=== PATIENT | male | born 1990 | race African-American/Black ===

== ENCOUNTER 2017-03-02 10:53 | Emergency (ER) | payer MEDICAID ==
[~2017-03-02] VITALS: Ht 175.3 cm; Wt 75.0 kg
[2017-03-02 10:59] VITALS: BP 139/78; PULSE 54; RESP 16; TEMP 98.3; O2SAT 100
[2017-03-02] MEDS ORDERED: ZOFR4TAB PO (11:12)
[2017-03-02] MEDS ORDERED: SODIUM CHLOR 0.9% 1000 ML INJ 1,000 ML IV ONE (11:12)
[2017-03-02] MEDS ORDERED: ONDANSETRON HCL 4 MG/2 ML VIAL IVP ONE (11:15)
[2017-03-02] MEDS ORDERED: DICYCLOMINE HCL 20 MG/2 ML VIAL IM ONE (11:15)
[2017-03-02] MEDS ORDERED: SODIUM CHLORIDE 0.9% FLUSH 10 ML FLUSH IVF PRN (11:15)
[2017-03-02] MEDS ORDERED: PANTOPRAZOLE SODIUM 40 MG VIAL IVP ONE (11:15)
[2017-03-02 11:20] VITALS: RESP 18; O2SAT 99
[2017-03-02 11:27] LABS: AUTOMATED NEUTROPHIL # 8.3 TH/MM3 (1.8-7.7); BASOPHIL % 0.4 % (0.0-2.0); EOSINOPHIL # 0.1 TH/MM3 (0-0.4); EOSINOPHIL % 0.5 % (0.0-4.0); HEMATOCRIT 43.1 % (39.0-51.0); LYMPH % 14.2 % (9.0-44.0); LYMPHOCYTE # 1.5 TH/MM3 (1.0-4.8); MEAN CELL VOLUME 87.1 FL (80.0-100.0); MEAN CORPUSCULAR HEMOGLOBIN 28.5 PG (27.0-34.0); MEAN CORPUSCULAR HGB CONC 32.8 % (32.0-36.0); NEUT % 79.9 % (16.0-70.0); PLATELET COUNT 119 TH/MM3 (150-450); RED BLOOD COUNT 4.95 MIL/MM3 (4.50-5.90); RED CELL DISTRIBUTION WIDTH 13.5 % (11.6-17.2); WHITE BLOOD COUNT 10.4 TH/MM3 (4.0-11.0)
[2017-03-02 11:28] LABS: HEMO FLAGS DIFF FINAL
--- NOTE | 2017-03-02 11:34 | PD ---
HPI Chief Complaint: Abdominal Pain Time Seen by Provider: 11:12 Travel History International Travel<30 days: No Contact w/Intl Traveler<30days: No Traveled to known affect area: No History of Present Illness HPI Patient presents with complaints of nausea vomiting and loose stools for 6 days. Denies any sick contacts. Denies any recent travel. Denies any new antibiotics or medications. Denies any camping. Denies any new foods. He does work as a chef french and admits to exposure to raw chicken which she reports was bad. He also admits to eating a chicken sandwich which he thought was undercooked on Saturday, the day prior to onset of symptoms. Denies significant alcohol intake. Reports evaluation at urgent care on where he was given Zofran. Symptoms have persisted. Denies any blood per emesis. Admits to a small amount of blood per stool which is not abnormal for him. Reports poor fluid intake. Denies any abdominal pain. Denies any urinary symptoms. PFSH Past Medical History Diminished Hearing: No Gastrointestinal Disorders: Yes (PYLORIC STENOSIS DUE TO FOOD ALLERGIES ) Immunizations Current: Yes Tetanus Vaccination: Unknown Influenza Vaccination: No Past Surgical History Abdominal Surgery: Yes (PORTION OF INTESTESTINES REMOVED) Social History Alcohol Use: No Tobacco Use: No Substance Use: Yes (MARIJUANA) Allergies-Medications (Allergen,Severity, Reaction): Coded Allergies: Dairy (Verified Allergy, Severe, Anaphylaxis, 03/02/17) Reported Meds & Prescriptions Reported Meds & Active Scripts Active Reported Zofran (Ondansetron HCl) 4 Mg Tab 4 Mg PO Q6HR PRN Review of Systems General / Constitutional: No: Fever Eyes: No: Visual changes HENT: No: Headaches Cardiovascular: No: Chest Pain or Discomfort Respiratory: No: Shortness of Breath Gastrointestinal: Positive: Nausea, Vomiting, Diarrhea, No: Abdominal Pain Genitourinary: No: Dysuria Musculoskeletal: No: Pain Skin: No Rash Neurologic: No: Weakness Psychiatric: No: Depression Endocrine: No: Polydipsia Hematologic/Lymphatic: No: Easy Bruising Physical Exam Narrative GENERAL: Well-nourished, well-developed patient. SKIN: Focused skin assessment warm/dry. HEAD: Normocephalic. EYES: No scleral icterus. No injection or drainage. NECK: Supple, trachea midline. No JVD or lymphadenopathy. CARDIOVASCULAR: Regular rate and rhythm without murmurs, gallops, or rubs. RESPIRATORY: Breath sounds equal bilaterally. No accessory muscle use. GASTROINTESTINAL: Abdomen soft, non-tender, nondistended. MUSCULOSKELETAL: No cyanosis, or edema. BACK: Nontender without obvious deformity. No CVA tenderness. Data Data Last Documented VS Vital Signs Date Time Temp Pulse Resp B/P Pulse Ox O2 Delivery O2 Flow Rate FiO2 03/02/17 11:20 18 99 Room Air 03/02/17 10:59 98.3 54 139/78 Orders Complete Blood Count With Diff (03/02/17 11:12) Comprehensive Metabolic Panel (03/02/17 11:12) Lipase (03/02/17 11:12) Iv Access Insert/Monitor (03/02/17 11:12) Ecg Monitoring (03/02/17 11:12) Oximetry (03/02/17 11:12) Ondansetron Inj (Zofran Inj) (03/02/17 11:15) Pantoprazole Inj (Protonix Inj) (03/02/17 11:15) Sodium Chlor 0.9% 1000 Ml Inj (Ns 1000 M (03/02/17 11:12) Sodium Chloride 0.9% Flush (Ns Flush) (03/02/17 11:15) Dicyclomine Inj (Bentyl Inj) (03/02/17 11:15) Promethazine Inj (Phenergan Inj) (03/02/17 12:30) Labs Laboratory Tests Test 03/02/17 11:20 White Blood Count 10.4 TH/MM3 Red Blood Count 4.95 MIL/MM3 Hemoglobin 14.1 GM/DL Hematocrit 43.1 % Mean Corpuscular Volume 87.1 FL Mean Corpuscular Hemoglobin 28.5 PG Mean Corpuscular Hemoglobin 32.8 % Concent Red Cell Distribution Width 13.5 % Platelet Count 119 TH/MM3 Mean Platelet Volume 9.7 FL Neutrophils (%) (Auto) 79.9 % Lymphocytes (%) (Auto) 14.2 % Monocytes (%) (Auto) 5.0 % Eosinophils (%) (Auto) 0.5 % Basophils (%) (Auto) 0.4 % Neutrophils # (Auto) 8.3 TH/MM3 Lymphocytes # (Auto) 1.5 TH/MM3 Monocytes # (Auto) 0.5 TH/MM3 Eosinophils # (Auto) 0.1 TH/MM3 Basophils # (Auto) 0.0 TH/MM3 CBC Comment DIFF FINAL Differential Comment Sodium Level 141 MEQ/L Potassium Level 3.6 MEQ/L Chloride Level 105 MEQ/L Carbon Dioxide Level 26.1 MEQ/L Anion Gap 10 MEQ/L Blood Urea Nitrogen 15 MG/DL Creatinine 1.40 MG/DL Estimat Glomerular Filtration 60 ML/MIN Rate Random Glucose 97 MG/DL Calcium Level 9.2 MG/DL Total Bilirubin 1.0 MG/DL Aspartate Amino Transf 12 U/L (AST/SGOT) Alanine Aminotransferase 16 U/L (ALT/SGPT) Alkaline Phosphatase 94 U/L Total Protein 8.1 GM/DL Albumin 4.3 GM/DL Lipase 274 U/L [facility] Medical Decision Making Medical Screen Exam Complete: Yes Emergency Medical Condition: Yes Differential Diagnosis Gastroenteritis, small bowel obstruction, pancreatitis, cholecystitis, salmonella, Escherichia coli Narrative Course Assessment and plan discussed with patient and at bedside. Hemoccult positive. Nausea controlled with Phenergan. Tolerated fluid challenge. Diagnosis Primary Impression: Gastroenteritis Patient Instructions: General Instructions Additional Instructions: Encouraged a bland high-fiber brat diet. Encouraged fluids. Encouraged to follow-up with PCP/GI. Encouraged to return to the emergency room if symptoms do not improve. Coverage for salmonella and Escherichia coli secondary to exposure. Discontinue Zofran. Encouraged [id number] Zantac 150 mg by mouth twice a day. Med/Other Pt SpecificInfo: Prescription(s) given Scripts Hyoscyamine (Levsin)0.125 Mg Tab0.125 Mg PO Q4H PRN (abdominal cramping) #30 TAB Ref 0 Prov:Camron Rodriguez MD 03/02/17 Promethazine (Phenergan)25 Mg [id number] Mg PO Q6H PRN (NAUSEA OR VOMITING) #30 TAB Ref 0 Prov:Camron Rodriguez MD 03/02/17 Ciprofloxacin (Cipro)500 Mg Cuq509 Mg PO BID 10 Days Ref 0 Prov:Camron Rodriguez MD 03/02/17 Disposition: 01 DISCHARGE HOME Condition: Good Camron Rodriguez MD Mar 02, 2017 11:34
[2017-03-02 11:35] LABS: CHLORIDE 105 MEQ/L (98-107); POTASSIUM 3.6 MEQ/L (3.5-5.1); SODIUM (NA) 141 MEQ/L (136-145)
[2017-03-02 11:39] LABS: ANION GAP 10 MEQ/L (5-15); BICARBONATE 26.1 MEQ/L (21.0-32.0); BLOOD UREA NITROGEN 15 MG/DL (7-18)
[2017-03-02 11:42] LABS: ALT (GPT) 16 U/L (12-78); AST (GOT) 12 U/L (15-37); GLOMERULAR FILTRATION RATE 60 ML/MIN (>89)
[2017-03-02 11:45] LABS: ALKALINE PHOSPHATASE 94 U/L (45-117)
[2017-03-02] MEDS ORDERED: PROMETHAZINE INJ 25 MG/ML VIAL IM ONE (12:30)
[2017-03-02 13:00] VITALS: BP 126/76; PULSE 62; RESP 18; O2SAT 100
[2017-03-02] MEDS ORDERED: PROM25TA10 PO (13:56)
[2017-03-02] MEDS ORDERED: CIPR-9 PO (13:56)
[2017-03-02] MEDS ORDERED: LEVS0.123 PO (13:56)
== END 2017-03-02 14:16 | disposition home or self-care (01) ==
LOC: PHED 10:53
DX: K52.9 Noninfective gastroenteritis and colitis, unspecified (principal)
CPT/HCPCS: 80053; 83690; 85025; 96361; 96372; 96374; 96375; 99284; C9113; J0500; J2405; J2550; J7030